=== PATIENT | female | born 2000 | race Two or more races ===

== ENCOUNTER 2019-09-21 16:20 | Emergency (ER) | payer OTHER ==
[~2019-09-21] VITALS: Ht 157.5 cm; Wt 77.5 kg
[2019-09-21 18:38] LABS: BASOPHILS % 0.3 % (0.0-2.0); HEMATOCRIT. 42.9 % (36.0-48.0); HEMOGLOBIN. 14.3 g/dL (12.0-16.0); MEAN CORPUSCULAR VOLUME 87.2 fL (81.0-99.0); MEAN PLATELET VOLUME 7.5 fl (7.4-10.4); MONOCYTES % 8.1 % (2.0-8.0); NEUTROPHILS % 69.6 % (40.0-76.0); PLATELET 339 x1000/uL (130-400); RED BLOOD CELL COUNT 4.92 mill/uL (4.2-5.4)
[2019-09-21 18:42] LABS: CHLORIDE 105 mEq/L (98-107)
[2019-09-21 18:53] LABS: B-HCG QUANTITATIVE 23 mIU/mL (<3)
[2019-09-21 21:12] VITALS: BP 135/86
== END 2019-09-21 21:14 | disposition home or self-care (01) ==
LOC: ER 16:20
DX: O20.9 Hemorrhage in early pregnancy, unspecified (principal); Z3A.01 Less than 8 weeks gestation of pregnancy; Z90.49 Acquired absence of other specified parts of digestive tract
CPT/HCPCS: 36415; 76801; 80053; 81025; 84702; 85025; 86850; 86900; 99284